=== PATIENT | male | born 1945 | race Caucasian/White ===

== ENCOUNTER → 2020-12-16 | Day surgery (SDC) | payer MEDICARE, OTHER ==
[~2020-12-16] VITALS: Ht 175.3 cm; Wt 72.6 kg
[~2020-12-16] MED LIST: ASPIRIN CHEWABL81 MG PO; ASPIRIN325 MG PO; FLOMAX0.4 MG PO; FOLIC ACID1 MG PO; LAMICTAL100 MG PO; LAMOTRIGINE100 MG PO; LYRICA150 MG PO; MORPHINE PO; MOVANTIK25 MG PO; MS CONTIN PO; MS CONTIN15 MG PO; PERCOCET 5-3251 EACH PO; SLOW RELEASE I168 MG PO; VALIUM2 MG PO; VIT B12 PO
== END | disposition home or self-care (01) ==
LOC: FAS 13:03
DX: H26.493 Other secondary cataract, bilateral (principal); H35.3131 Nonexudative age-related macular degeneration, bilateral, early dry stage; H43.812 Vitreous degeneration, left eye; M19.90 Unspecified osteoarthritis, unspecified site; Z79.891 Long term (current) use of opiate analgesic; Z79.899 Other long term (current) drug therapy

== ENCOUNTER → 2021-01-20 | Day surgery (SDC) | payer MEDICARE, OTHER ==
[~2021-01-20] VITALS: Ht 175.3 cm; Wt 72.6 kg
== END | disposition home or self-care (01) ==
LOC: FAS 12:41
DX: H26.493 Other secondary cataract, bilateral (principal); H35.3131 Nonexudative age-related macular degeneration, bilateral, early dry stage; H43.812 Vitreous degeneration, left eye; M19.90 Unspecified osteoarthritis, unspecified site; Z79.899 Other long term (current) drug therapy

== ENCOUNTER → 2021-10-21 | Day surgery (SDC) | payer MEDICARE, OTHER ==
[~2021-10-21] VITALS: Ht 175.3 cm; Wt 68.0 kg
[~2021-10-21] MED LIST changes: +ASPIRIN EC81 MG PO; +CARAFATE1 GM PO; +CHILDREN'S ASPI81 MG PO; +FEOSOL325 MG PO; +NORCO 5-325 TA1 EACH PO; +ONDANSETRON ODT8 MG PO; +PEPCID AC20 MG PO; +PROTONIX 40MG T40 MG PO; +ZOFRAN4 M1 PO
[2021-10-21 09:22] LABS: HCT 34.9 % (42.0-52.0); HGB 11.2 g/dl (13.2-18.0); MCH 30.9 pg (25.0-31.0); MCHC 32.1 g/dL (32.0-36.0); MCV 96.4 fL (78.0-100.0); RBC 3.62 M/uL (4.70-6.00); RDW 13.3 % (11.5-14.0); WBC 4.1 K/uL (4.0-10.5)
[2021-10-21 09:44] LABS: ALBUMIN 3.3 g/dL (3.4-5.0); BILIRUBIN - TOTAL 0.5 mg/dL (0.2-1.0); BUN/CREAT RATIO (CALC) 13.4 RATIO; CREATININE 0.97 mg/dL (0.67-1.17); GLOBULIN (CALCULATION) 3.1 g/dL; POTASSIUM 3.4 mmol/L (3.5-5.1); TOTAL PROTEIN 6.4 g/dL (6.4-8.2)
== END | disposition home or self-care (01) ==
LOC: FAS 08:33
PROVIDERS: Surgery
DX: K80.13 Calculus of gallbladder with acute and chronic cholecystitis with obstruction (principal); D64.9 Anemia, unspecified; Z87.891 Personal history of nicotine dependence; Z79.82 Long term (current) use of aspirin; Z79.899 Other long term (current) drug therapy
CPT/HCPCS: 36415; 74300; 80053; C1758; J1100; J1170; J2250; J2405; J2704; J2710; J3010; J7120; Q9967